=== PATIENT | female | born 1990 | race Caucasian/White ===

== ENCOUNTER 2018-04-22 14:28 | Emergency (ER) | payer SELFPAY ==
[2018-04-22] MEDS ORDERED: Morphine 4 MG/ML VIAL ONE (15:19)
[2018-04-22] MEDS ORDERED: Ondansetron HCl/PF 4 MG/2 ML Vial ONE (15:20)
[2018-04-22] MEDS ORDERED: Ketorolac Tromethamine 30 MG/ML VIAL ONE (15:20)
[2018-04-22 15:26] LABS: #Basophils 0.1 thou/uL (0.0-0.2); #Eosinphils 0.3 thou/uL (0.0-0.7); #Lymphocytes 3.4 thou/uL (1.20-3.40); #Monocytes 0.7 thou/uL (0.11-0.59); #Neutrophils 4.5 thou/uL (1.40-6.50); %Basophils 0.9 % (0.0-1.0); %Eosinophils 3.6 % (0.0-10.0); %Lymphocytes 37.6 % (21.0-51.0); %Monocytes 7.6 % (0.0-10.0); %Neutrophils 50.3 % (42.0-75.0); Hemoglobin 13.9 g/dL (12.0-16.0); Mean Corpuscular HGB CONC 34.2 g/dL (32.0-36.0); Mean Corpuscular Hemoglobin 31.3 pg (27.0-31.0); Mean Corpuscular Volume 91.6 fL (78.0-98.0); Mean Platelet Volume 6.7 fL (7.4-10.4); Platelet Count 402 thou/uL (130-400); RBC Distribution Width 11.1 % (11.5-14.5); Red Blood Cell (RBC) Count 4.45 mill/uL (4.20-5.40)
[2018-04-22 15:53] LABS: ALT (SGPT) 12 U/L (8-55); AST (SGOT) 7 U/L (5-34); Albumin 4.5 g/dL (3.5-5.0); Alkaline Phosphatase 66 U/L (40-150); Anion Gap 13 mmol/L (10-20); BUN (Urea Nitrogen) 11 mg/dL (7.0-18.7); Bilirubin, Total 0.5 mg/dL (0.2-1.2); Calc. Creatinine Clearance 0 mL/min (70-130); Calcium 10.3 mg/dL (7.8-10.44); Carbon Dioxide 23 mmol/L (22-29); Chloride 104 mmol/L (98-107); Estimated GFR-MDRD 78; Globulin 3.2 g/dL (2.4-3.5); Glucose 101 mg/dL (70-105); Lipase 21 U/L (8-78); Potassium 3.9 mmol/L (3.5-5.1); Protein, Total 7.7 g/dL (6.0-8.3); Sodium 136 mmol/L (136-145)
[2018-04-22 16:00] LABS: BHCG - Serum Negative (NEGATIVE); Pregs Control Background? CLEAR/WHITE (CLR/WHITE); Pregs Control Bar Appear? YES (CONTROL BAR)
--- NOTE | 2018-04-22 16:34 | ULT ---
RIGHT UPPER QUADRANT ULTRASOUND: DATE: 04/22/2018. HISTORY: Right upper quadrant abdominal pain. FINDINGS: There are multiple tiny mobile echogenic foci seen in the gallbladder lumen with posterior shadowing consistent with gallbladder calculi. Gallbladder is distended measuring 10 cm in length. Gallbladde r wall thickness is at the upper limits of normal measuring 0.3 cm. No pericholecystic fluid is seen . The common duct is at the upper limits of normal in size measuring 0.6 cm in diameter. The visualized portions of the pancreas, visualized portions of the IVC, liver, and right kidney demo nstrate a normal sonographic appearance. The right kidney measures 9.1 cm in length. IMPRESSION: 1. Mild distention of the gallbladder with evidence of cholelithiasis. There is no pericholecystic fluid or definitive findings to suggest cholecystitis. 2. The common duct is at the upper limits of normal in size measuring 0.6 cm. POS: [facility]
[2018-04-22 17:09] LABS: Bilirubin Negative (Negative); Blood, Urine Negative (Negative); Clarity CLEAR (Clear); Glucose, Urine (Dipstick) Negative (Negative); Leukocyte Negative (Negative); Nitrite Negative (Negative); Protein, Urine (Dipstick) Negative (Neg-Trace); Urobilinogen 0.2 mg/dL (0.2-1.0); pH, Urine 7.5 (5.0-9.0)
== END 2018-04-22 18:00 | disposition home or self-care (01) ==
LOC: ERS 14:28
DX: R10.11 Right upper quadrant pain (principal); F32.9 Major depressive disorder, single episode, unspecified; F17.210 Nicotine dependence, cigarettes, uncomplicated; Z79.899 Other long term (current) drug therapy
CPT/HCPCS: 76705; 80053; 81003; 83690; 84703; 85025; 96361; 96374; 96375; J1885; J2270; J2405

== ENCOUNTER 2019-08-29 08:46 | Outpatient (CLI) | payer OTHER ==
--- NOTE | 2019-08-29 09:37 | ULT ---
OB ULTRASOUND: HISTORY: anatomy. FINDINGS: A single live intrauterine gestation is seen with measurements corresponding to an estimated gestatio nal age of 21 weeks 1 day and SHANTELL at 01/08/2020. The estimated weight measures 405 g or 14 ounces (93% by Hadlock criteria). biometry: BPD: 5.05 cm, 21 weeks 3 days HC: 17.90 cm, 20 weeks 3 days AC: 16.32 cm, 21 weeks 3 days FL: 3.5 cm, 21 weeks 1 day heart rate measures 133 bpm. RASHAWN measures 12.3 cm. The placenta measures is posteriorly locat ed without placenta previa. The cervical length measures 3.7 cm. A 3-vessel cord, cord insertion, kidneys, bladder, stomach, four-chamber heart, lateral ventric les, cerebellum, spine, lips/nose, upper and lower extremities are visualized. No definite abnormalities are seen. IMPRESSION: Single live intrauterine of 21 weeks 1 day estimated gestational age and estimated date of delivery at 01/08/2020. Transcribed Date/Time: 08/29/2019 9:50 AM
== END 2019-08-29 08:47 | disposition home or self-care (01) ==
LOC: BICULT 08:46
PROVIDERS: ATTEND Family Medicine
DX: Z34.82 Encounter for supervision of other normal pregnancy, second trimester (principal); Z3A.21 21 weeks gestation of pregnancy
CPT/HCPCS: 76805

== ENCOUNTER 2019-11-21 14:36 | Day surgery (SDC) | payer OTHER ==
[2019-11-21 14:45] VITALS: BP 117/70; TEMP 98.8
[2019-11-21 14:46] VITALS: BMI 28.8
[2019-11-21] MEDS ORDERED: hydrALAZINE 20 MG/ML VIAL SLOW IVP PRN (16:16)
[2019-11-21 16:48] LABS: Bilirubin Negative (Negative); Blood, Urine Negative (Negative); Clarity Clear (Clear); Glucose, Urine (Dipstick) Normal (Negative); Leukocyte Negative Leu/uL (Negative); Nitrite Negative (Negative); Protein, Urine (Dipstick) Negative (Neg-Trace); RBC/HPF 0-3 HPF (0-3); Squamous Epithelial 0-3 HPF (0-3); Urobilinogen Normal mg/dL (Less than 2); WBC/HPF 0-3 HPF (0-3)
[2019-11-21 16:51] LABS: Bacteria/HPF 1+ HPF (None Seen)
--- NOTE | 2019-11-21 18:55 | PRG ---
DATE OF SERVICE: 11/21/2019 PRIMARY OB: Dale Mccauley MD CHIEF COMPLAINT: Pelvic pressure, back pain and pelvic pains. HISTORY OF PRESENT ILLNESS: The patient is a 29-year-old, G3, P1 female with an intrauterine at 32 weeks and a day, presenting to Labor and Delivery with a several-day history of pelvic and back pain. She has more recently been feeling more pelvic pressure and decided to come in to be evaluated. The patient denies vaginal bleeding, urinary urgency or frequency. She denies any fever, headache, chest pain, shortness of breath. She does report she has been experiencing a sore throat that is reminiscent to strep throat the last few days, though she denies that is causing her much discomfort anymore. She reports that she has a cough sometimes at night. She also reports seasonal allergies and postnasal drip. She denies nausea, vomiting, diarrhea, constipation, hip problems. She denies any new rashes. She reports pelvic pains, particularly on her left side and she reports Waqas Gregory contractions that for the most part, do not cause her discomfort or pain, just tightening, and also denies intercourse over the last several days. PAST MEDICAL HISTORY: Endometriosis, depression, and anemia. PAST SURGICAL HISTORY: Diagnostic laparoscopy, cholecystectomy. SOCIAL HISTORY: Denies drug, alcohol, tobacco use. ALLERGIES: NO KNOWN DRUG ALLERGIES. MEDICATIONS: 1. vitamins. 2. Lexapro. 3. Iron. OB LABS: Unavailable at the time of dictation. REVIEW OF SYSTEMS: Per HPI. PHYSICAL EXAMINATION: VITAL SIGNS: Blood pressure 117/70, heart rate of 85, respiratory rate of 18, temperature 98.7, saturating 100% on room air. GENERAL: She appears to be in no acute distress. She is alert, oriented, cooperative, and pleasant to interact with. HEAD: Normocephalic, atraumatic. LUNGS: Clear to auscultation bilaterally. HEART: Has a regular rate and rhythm. ABDOMEN: Gravid, soft, nontender to palpation. She does have some tenderness reproduced with deviation of the uterus to the left and right, primarily on her left side, sharper in nature. She has no CVA tenderness. No SI joint tenderness. PELVIC: Vulva is without masses, lesions, or erythema. Vagina is moist. She has some minimal discharge. Cervix is visibly closed. On digital exam, cervix is closed. DIAGNOSTIC DATA: heart tracing shows the fetus with a baseline in the 130s with moderate long-term variability, positive 15 x 15 accelerations, no decelerations. Tocometer showing some irritability, but no regular contraction pattern. Urinalysis shows 1+ bacteria, negative nitrites, negative leukocyte esterase, negative squamous cells. VP3 is back, negative for Trichomonas, Gardnerella, and Birdie. ASSESSMENT AND PLAN: The patient is a 29-year-old female with an intrauterine at 32 weeks and a day, feeling pelvic pressure in the presence of bacteria and some irritability. The patient is being treated with Macrobid 100 mg, to be taken twice a day for the next five days. She has been given labor precautions. Fetus has a category 1 tracing and reactive NST. She has been counseled to follow up with her primary OB as scheduled in the next week or two. Job ID: [id number]
== END 2019-11-21 17:14 | disposition home or self-care (01) ==
LOC: SDC 14:36 → L&D/OP 17:14
PROVIDERS: ATTEND Family Medicine
DX: O99.89 Other specified diseases and conditions complicating pregnancy, childbirth and the puerperium (principal); R10.2 Pelvic and perineal pain; M54.9 Dorsalgia, unspecified; O99.343 Other mental disorders complicating pregnancy, third trimester; F32.9 Major depressive disorder, single episode, unspecified; O99.013 Anemia complicating pregnancy, third trimester; D64.9 Anemia, unspecified; Z3A.32 32 weeks gestation of pregnancy; Z79.899 Other long term (current) drug therapy
CPT/HCPCS: 81001; 87480; 87510; 87660

== ENCOUNTER 2019-12-06 20:31 | Day surgery (SDC) | payer OTHER ==
[2019-12-06 21:04] VITALS: BP 118/69; TEMP 98.5; BMI 30.1
[2019-12-06] MEDS ORDERED: hydrALAZINE 20 MG/ML VIAL SLOW IVP PRN (21:33)
--- NOTE | 2019-12-06 22:54 | ULT ---
Exam: Limited OB ultrasound HISTORY: Cramping. Vaginal bleeding. Pain FINDINGS: Single intrauterine gestation Limited evaluation of the lower uterine segment due to shadowing Presentation: Vertex Placenta: Posterior Amniotic fluid index 15.7 cm heart tones: 162 bpm IMPRESSION: 1. Limited evaluation the cervix due to shadowing 2. Vertex presentation. 3. Emergency Preparedness Coordinator reports a heart tone of 162 bpm
--- NOTE | 2019-12-07 02:14 | SS ---
DATE OF ADMISSION: 12/06/2019 DATE OF DISCHARGE: 12/06/2019 REGULAR PHYSICIAN: Dale Mccauley MD EVALUATING PHYSICIAN: Maciej Hernandez MD CHIEF COMPLAINT: Bleeding at home. HISTORY OF PRESENT ILLNESS: Ms. Jarrell is a 29-year-old white G2, P0, with an estimated date of confinement of 01/15/2020, who presents complaining of bright red spotting early this morning, now with brown discharge. She denies associated ruptured membranes or decreased movement. Her care has been with Dr. Mccauley and was complicated by a suspected subchorionic bleed in the first part of her . She states she has had ultrasounds that show this has been resolved. PAST OBSTETRICAL HISTORY: Includes one vaginal delivery at term. PAST MEDICAL HISTORY: Depression. PAST SURGICAL HISTORY: Laparoscopy for endometriosis. CURRENT MEDICATIONS: 1. vitamins. 2. Iron. 3. Lexapro. ALLERGIES: CLINDAMYCIN. SOCIAL HISTORY: Denies tobacco, alcohol or drug use. FAMILY HISTORY: Unremarkable. REVIEW OF SYSTEMS: Denies nausea, vomiting, fever, chills, ruptured membranes. PHYSICAL EXAMINATION: In triage: VITAL SIGNS: Stable. She is afebrile. GENERAL: She is pleasant and in no acute distress. ABDOMEN: Soft, nontender and gravid. Sterile speculum examination shows the cervix to be closed. There is no blood seen in the vagina. FHTs are stable. No decelerations are seen. No regular contractions are seen. IMAGING: Pelvic ultrasound by verbal report, reports normal amniotic fluid and no evidence of placental abruption. ASSESSMENT: 1. 34-week intrauterine . 2. No evidence of bleeding at this time. PLAN: The patient will be dismissed to home. Precautions were reviewed with her in detail. She states that she has an appointment with Dr. Mccauley in one week. Job ID: [id number] MTDD
== END 2019-12-06 22:47 | disposition home or self-care (01) ==
LOC: L&D/OP 20:31
PROVIDERS: ATTEND Family Medicine
DX: O26.853 Spotting complicating pregnancy, third trimester (principal); O99.343 Other mental disorders complicating pregnancy, third trimester; F32.9 Major depressive disorder, single episode, unspecified; Z3A.34 34 weeks gestation of pregnancy; Z79.899 Other long term (current) drug therapy; Z88.1 Allergy status to other antibiotic agents; Z88.3 Allergy status to other anti-infective agents
CPT/HCPCS: 76815; 99282

== ENCOUNTER 2019-12-14 20:18 | Inpatient (IN) | payer OTHER ==
[2019-12-14 21:50] VITALS: BMI 31.6
[2019-12-14] MEDS ORDERED: hydrALAZINE 20 MG/ML VIAL SLOW IVP PRN (22:26)
--- NOTE | 2019-12-14 23:11 | PRG ---
DATE OF SERVICE: 12/14/2019 PRIMARY OB: Dale Mccauley MD CHIEF COMPLAINT: Abdominal pains. HISTORY OF PRESENT ILLNESS: The patient is a 29-year-old, G3, P1 female with an intrauterine at 35 weeks and 3 days, who is presenting to Labor and Delivery with abdominal pains that began just after noon today. She reports that she has been feeling them less frequently this evening, but are still present. She was last seen by her doctor this morning when she had a cervical check and was reported to being 2 cm dilated. She denies any vaginal bleeding or significant change in discharge. Denies any significant urinary urgency or frequency. She denies fever, fall, headache, chest pain, or shortness of breath. She has had a little bit of nausea. Denies vomiting. The patient reports significant diarrhea since just before her onset of her symptoms after having a sausage sandwich from [employer]. She reports that she has gone multiple times today of watery diarrhea. She has managed to stay hydrated and she has been able to keep fluids down. She denies any new rashes, hip problems, knee problems, or muscle weakness. The patient denies recent intercourse. PAST MEDICAL HISTORY: Endometriosis, depression, anemia. PAST SURGICAL HISTORY: Diagnostic laparoscopy with cholecystectomy. SOCIAL HISTORY: Denies drug, alcohol, or tobacco use. ALLERGIES: CLEOCIN. MEDICATIONS: vitamins, Lexapro, and iron. OB LABS: Unavailable at the time of dictation. REVIEW OF SYSTEMS: Per HPI. PHYSICAL EXAMINATION: VITAL SIGNS: Blood pressure is 116/76, heart rate of 88, respiratory rate of 18 , saturating 100% on room air. GENERAL: She appears to be in no acute distress. She is alert, oriented, cooperative, and pleasant to interact with. HEAD: Normocephalic and atraumatic. LUNGS: Clear to auscultation bilaterally. HEART: Has regular rate and rhythm. ABDOMEN: Gravid and soft. EXTREMITIES: Nontender, nonedematous. PELVIC: Cervical exam per nursing staff, she has 2, 50 and -3 station, unchanged from her exam today. DIAGNOSTIC DATA: heart tracing shows a baseline in the 120s with moderate long-term variability, positive 15 x 15 accelerations. Tocometer shows some irritability, difficulty picking up any regular contraction pattern. ASSESSMENT AND PLAN: The patient is a 29-year-old female with an intrauterine at 35 weeks and 3 days, who sounds like she has developed gastroenteritis from food earlier today. This seems to be self-limited and is by report improving. This is likely the cause of her contractions. Also, she has no evidence of labor at this time. Fetus has a category 1 tracing and reactive NST. Plan at this time is to observe the patient for the next couple of hours and recheck for any signs of cervical change. If there is no change, the patient will be discharged home. She has a scheduled appointment next Thursday with her primary OB, which we have encouraged that she keep. If the patient is making cervical change, we will consider giving her steroids and observing her overnight. 12/15/19 0729 Addendum. Pt made cervical change to 4cm and has stalled. She continue to contract some. Dr Mccauley has been updated and will be assuming care. Job ID: [id number] [facility]
[2019-12-15] MEDS ORDERED: hydrALAZINE 20 MG/ML VIAL SLOW IVP PRN ×2 (02:09→22:50)
[2019-12-15] MEDS ORDERED: Lactated Ringer's 1,000 ML IV SCH (02:15)
[2019-12-15] MEDS ORDERED: Penicillin G Potassium 5 MILL.UNITS in Sodium Chloride 0.9% 100 ML IVPB SCH (02:30)
[2019-12-15] MEDS: Betamet Acet/Betamet Na Ph 30 MG/5 ML VIAL IM SCH ×2 (02:49→14:35)
[2019-12-15] MEDS: Lactated Ringer's 1,000 ML IV SCH ×4 (03:00→17:07)
[2019-12-15] MEDS: Butorphanol Tartrate 1 MG/ML VIAL SLOW IVP PRN ×2 (03:17→05:20)
[2019-12-15 03:21] LABS: Hemoglobin 12.3 g/dL (12.0-16.0); Mean Corpuscular HGB CONC 33.8 g/dL (32.0-36.0); Mean Corpuscular Hemoglobin 30.7 pg (27.0-31.0); Mean Corpuscular Volume 90.8 fL (78.0-98.0); Mean Platelet Volume 7.9 fL (7.4-10.4); Platelet Count 348 thou/uL (130-400); RBC Distribution Width 13.8 % (11.5-14.5); White Blood Cell (WBC) Count 9.2 thou/uL (4.8-10.8)
[2019-12-15 03:59] LABS: HBSAg Index 0.15 S/CO (0-0.99); Hep B Surf Ag Non-Reactive S/CO (NonReactive)
[2019-12-15] MEDS: Pen G 2.5 MILL.UNITS/50 ML BAG IVPB SCH ×3 (07:00→18:29)
[2019-12-15 07:01] LABS: Syphilis Antibody Nonreactive (Nonreactive); Syphilis Antibody Index 0.02 S/CO (<1.00 Non-Reactive)
[2019-12-15] MEDS ORDERED: Fentanyl 4 mcg/Bup 0.1% Cadd 100 ML ONE ×2 (08:23→15:13)
[2019-12-15] MEDS ORDERED: Acetaminophen 325 MG TAB PO SCH (08:45)
[2019-12-15] MEDS ORDERED: Misoprostol 200 MCG TAB PR PRN (09:09)
[2019-12-15] MEDS ORDERED: Ondansetron PF 4 MG/2 ML Vial IVP PRN ×3 (09:09→22:50)
[2019-12-15] MEDS ORDERED: Diphenoxylate HCl/Atropine Tablet PO PRN (09:09)
[2019-12-15] MEDS ORDERED: HYDROcodone/Acetaminophen 5/325 mg Tablet PO PRN ×2 (09:09→22:50)
[2019-12-15] MEDS ORDERED: NS / Oxytocin 40 units/1000ml 1,000 ML IV PRN (09:09)
[2019-12-15] MEDS ORDERED: Carboprost 250 MCG/ML AMP IM PRN (09:09)
[2019-12-15] MEDS ORDERED: Lidocaine 1% (PF) 30 ML VIAL SC PRN (09:09)
[2019-12-15] MEDS ORDERED: Promethazine HCl 25 MG/ML VIAL IM PRN ×3 (09:09→22:50)
[2019-12-15] MEDS ORDERED: Ibuprofen 800 MG TAB PO PRN (09:09)
[2019-12-15] MEDS ORDERED: Methylergonovine 0.2 MG/ML VIAL IM PRN (09:09)
[2019-12-15] MEDS ORDERED: diphenhydrAMINE 50 MG/ML VIAL IVP PRN (09:11)
[2019-12-15] MEDS ORDERED: EPHEDRINE 25 MG/5 ML SYRINGE SLOW IVP PRN (09:11)
[2019-12-15] MEDS ORDERED: Naloxone HCl 0.4 mg/ml Vial IVP PRN ×2 (09:11)
[2019-12-15] MEDS ORDERED: Acetaminophen 325 MG TAB PO PRN (09:11)
[2019-12-15] MEDS ORDERED: Lactated Ringer's 500 ML IV PRN (09:11)
[2019-12-15] MEDS ORDERED: NS w/ Oxytocin 10 units 500 ML IV SCH ×2 (09:15)
[2019-12-15] MEDS ORDERED: Fentanyl 4 mcg/Bupivacaine 0.1% Cassette 100 ML EPIDURAL SCH (09:15)
[2019-12-15] MEDS ORDERED: Communication Order-Pharmacy FS SCH (09:15)
[2019-12-15 09:42] LABS: Hemoglobin 12.5 g/dL (12.0-16.0); Mean Corpuscular HGB CONC 33.8 g/dL (32.0-36.0); Mean Corpuscular Hemoglobin 31.1 pg (27.0-31.0); Mean Platelet Volume 7.7 fL (7.4-10.4); Platelet Count 337 thou/uL (130-400); RBC Distribution Width 13.7 % (11.5-14.5); Red Blood Cell (RBC) Count 4.03 mill/uL (4.20-5.40); White Blood Cell (WBC) Count 9.7 thou/uL (4.8-10.8)
[2019-12-15 10:25] LABS: HBSAg Index 0.23 S/CO (0-0.99); Hep B Surf Ag Non-Reactive S/CO (NonReactive); Syphilis Antibody Nonreactive (Nonreactive); Syphilis Antibody Index 0.02 S/CO (<1.00 Non-Reactive)
[2019-12-15] MEDS ORDERED: Betamet Acet/Betamet Na Ph 30 MG/5 ML VIAL IM SCH (14:00)
[2019-12-15] MEDS ORDERED: NS / Oxytocin 40 units/1000ml 1,000 ML ONE (17:47)
[2019-12-15] MEDS ORDERED: Lidocaine 1% (PF) 30 ML VIAL ONE (17:47)
[2019-12-15] MEDS ORDERED: diphenhydrAMINE 25 MG CAP PO PRN (22:50)
[2019-12-15] MEDS ORDERED: Lanolin Ointment 7 GM TUBE TOP PRN (22:50)
[2019-12-15] MEDS ORDERED: NS / Oxytocin 40 units/1000ml 1,000 ML IV SCH (22:50)
[2019-12-15] MEDS ORDERED: Benzocaine-Menthol 82.5 ML CAN TOP PRN (22:50)
[2019-12-15] MEDS ORDERED: Milk Of Magnesia 30 ML UDCUP PO PRN (22:50)
[2019-12-15] MEDS ORDERED: Bisacodyl 10 MG SUPP PR PRN (22:50)
[2019-12-15] MEDS ORDERED: Docusate Calcium (SURFAK) 240 MG CAP PO SCH (23:00)
[2019-12-15] MEDS ORDERED: Ibuprofen 800 MG TAB PO SCH (23:00)
--- NOTE | 2019-12-16 01:10 | DN ---
DATE OF PROCEDURE: 12/15/2019 PREOPERATIVE DIAGNOSIS: 35.4-week , pre-term labor. POSTOPERATIVE DIAGNOSIS: 35.4-week , pre-term labor, delivered. PROCEDURE PERFORMED: Spontaneous vaginal delivery. DESCRIPTION OF EVENTS: I was present for delivery of this 29-year-old white female, G2, P1, now P2, a viable male on 12/15/2019. The delivered in OA presentation over an intact perineum. A loose nuchal cord was reduced without difficulty. The remainder of the infant delivered uneventfully and without difficulties. Cord was clamped x2 and a vigorous, crying male was handed to the staff in attendance. Cord blood was obtained. The placenta was delivered spontaneously, intact. Shortly thereafter, a 3-vessel cord was noted. Placenta was sent to Pathology for review. No lacerations were seen. ESTIMATED BLOOD LOSS: 150 mL. DISPOSITION: The patient taken to Recovery in stable condition. Infant to the ICU for respiratory support in stable condition. Job ID: [id number]
[2019-12-16] MEDS: Pen G 2.5 MILL.UNITS/50 ML BAG IVPB SCH (02:12)
[2019-12-16] MEDS: Ibuprofen 800 MG TAB PO SCH ×3 (05:13→22:05)
[2019-12-16 06:17] LABS: Hemoglobin 12.4 g/dL (12.0-16.0); Mean Corpuscular HGB CONC 30.8 g/dL (32.0-36.0); Mean Corpuscular Volume 94.1 fL (78.0-98.0); Platelet Count 467 thou/uL (130-400); RBC Distribution Width 14.1 % (11.5-14.5); Red Blood Cell (RBC) Count 4.26 mill/uL (4.20-5.40); White Blood Cell (WBC) Count 22.4 thou/uL (4.8-10.8)
[2019-12-16] MEDS: Docusate Calcium (SURFAK) 240 MG CAP PO SCH ×2 (08:20→20:54)
[2019-12-16] MEDS: Prenatal Vitamin 1 TAB PO SCH (08:20)
[2019-12-16] MEDS: HYDROcodone/Acetaminophen 5/325 mg Tablet PO PRN ×3 (08:20→19:10)
[2019-12-16] MEDS: Ferrous Sulfate 325 MG TAB PO SCH ×2 (08:21→18:08)
[2019-12-16] MEDS ORDERED: Adacel (T-DAP) 0.5 ML SYRINGE IM ONE (09:00)
[2019-12-16 16:51] VITALS: TEMP 98.4
[2019-12-17] MEDS: HYDROcodone/Acetaminophen 5/325 mg Tablet PO PRN ×4 (04:45→18:22)
[2019-12-17] MEDS: Ibuprofen 800 MG TAB PO SCH ×2 (06:06→13:55)
[2019-12-17 07:30] VITALS: BP 121/73
[2019-12-17] MEDS: Ferrous Sulfate 325 MG TAB PO SCH ×2 (08:42→16:30)
[2019-12-17] MEDS: Docusate Calcium (SURFAK) 240 MG CAP PO SCH (08:46)
[2019-12-17] MEDS: Prenatal Vitamin 1 TAB PO SCH (08:46)
== END 2019-12-17 19:29 | disposition home or self-care (01) | DRG 805 ==
LOC: L&D/OP 20:18 → OBSVTOIN 12-15 02:30 → L&D 12-15 02:30 → 3SE 12-15 23:13
PROVIDERS: ADMIT Family Medicine; ATTEND Family Medicine
PROC: 10E0XZZ Delivery of Products of Conception, External Approach (ICD-10-PCS; principal; 2019-12-15)
DX: O69.81X0 Labor and delivery complicated by cord around neck, without compression, not applicable or unspecified (principal); O60.14X0 Preterm labor third trimester with preterm delivery third trimester, not applicable or unspecified; Z37.0 Single live birth; O99.62 Diseases of the digestive system complicating childbirth; O99.344 Other mental disorders complicating childbirth; F32.9 Major depressive disorder, single episode, unspecified; O99.02 Anemia complicating childbirth; D64.9 Anemia, unspecified; K52.89 Other specified noninfective gastroenteritis and colitis; Z3A.35 35 weeks gestation of pregnancy; Z88.1 Allergy status to other antibiotic agents
CPT/HCPCS: 36415; 51702; 85027; 86780; 86850; 86900; 86901; 87340; 88307; 99285; J0595; J0702; J2001; J2540; J2590; J3490